=== PATIENT | male | born 1960 | race Hispanic/Latino ===

== ENCOUNTER → 2020-04-04 | Day surgery (SDC) | payer OTHER ==
[~2020-04-04] MED LIST: ALLERGY RELIEF10 M4 PO; ASPIRIN81 MG PO; FENTANYL CITRATE/PF 100MCG/2 ML INJ ONE; GLUCAGON FOR INJ 1 MG VIAL ONE; HYOSCYAMINE 0.125 MG TAB ONE; MIDAZOLAM HCL 2 MG/2 ML VIAL ONE; PROPOFOL IV EMULSION 10 MG/ML 20 ML VIAL ONE
[2020-04-04 10:20] VITALS: BP 129/81
--- NOTE | 2020-04-04 11:16 | Operative Report ---
DATE OF PROCEDURE: 04/04/2020 SURGEON: Pepe Cabrera MD PROCEDURE: Colonoscopy with polypectomy note. INDICATIONS FOR COLONOSCOPY: Colorectal cancer screening, personal history of colon cancer. MEDICATIONS: The patient was done under MAC, please see anesthesiologist's note. PROCEDURE IN DETAIL: With the patient in the supine position, the flexible fiberoptic Olympus colonoscope was inserted into the stoma as the patient is status post colon resection with colostomy and the scope was advanced all the way to the cecum, it was then withdrawn slowly, mucosa overlying the cecum, ascending, and transverse appeared to be within normal limits. One polyp was cold biopsied, two polyps were hot biopsied from the descending colon. The stoma appeared to be within normal limits. The scope was subsequently withdrawn, the patient tolerated the procedure well. IMPRESSION: Descending colon polyps x3, one cold biopsied and two hot biopsied. PLAN: 1. Follow up histology. 2. Initiate high-fiber, low-fat diet. 3. Initiate high-fiber supplement. 4. The patient might benefit from a followup colonoscopy in 3 [address]. [address] MD [facility] [place]/DESTINYL /[id number] cc: Dr. Christian [facility]
== END | disposition home or self-care (01) ==
LOC: OR 07:55
PROVIDERS: ATTEND Internal Medicine Gastroenterology
DX: Z12.11 Encounter for screening for malignant neoplasm of colon (principal); Z85.038 Personal history of other malignant neoplasm of large intestine; K63.5 Polyp of colon; Z93.3 Colostomy status; F17.210 Nicotine dependence, cigarettes, uncomplicated; Z01.810 Encounter for preprocedural cardiovascular examination; Z01.812 Encounter for preprocedural laboratory examination; Z11.59 Encounter for screening for other viral diseases; Z79.82 Long term (current) use of aspirin
CPT/HCPCS: 45380; 45384; 88305; 93005; J1610; J2250; J2704; J3010; U0002; 45378